=== PATIENT | female | born 1990 | race Two or more races ===

== ENCOUNTER → 2017-01-21 | Outpatient (CLI) | payer OTHER ==
--- NOTE | 2017-01-21 09:08 | REP ---
Cervical spine series: Seven views. History: Spondylosis. Comparison cervical spine radiographs are from May 30, 2016. Findings: There is straightening of the normal cervical lordosis. Cervical vertebral body heights are preserved. Disc spaces are maintained. Flexion/extension lateral views show some limitation of flexion/extension range of motion but no subluxation or instability. AP and open mouth odontoid views remain unremarkable. Oblique images show intact neural foramina bilaterally at each cervical level and normally aligned facets. Impression: Some limitation of flexion/extension range of motion otherwise normal cervical spine radiographs. Unreviewed
--- NOTE | 2017-01-21 09:18 | REP ---
Lumbar spine series: Seven views. History: Spondylosis. Findings: Lateral views done in flexion/extension and neutral position show no subluxation or instability. Vertebral body heights are preserved. Alignment is normal. Disc spaces are maintained. Pedicles and posterior elements are intact. Psoas margins are symmetric. Sacrum and SI joints are intact. Impression: Unremarkable lumbar spine radiographs. Unreviewed
== END ==
LOC: M LAB 08:23
PROVIDERS: ATTEND Neurological Surgery
DX: M47.892 Other spondylosis, cervical region (principal)

== ENCOUNTER 2017-07-28 18:40 | Outpatient (CLI) | payer OTHER ==
[~2017-07-28] VITALS: Ht 170.2 cm; Wt 102.6 kg
[2017-07-28 18:56] VITALS: BP 131/90
[2017-07-28] MEDS ORDERED: ACET50TA PO (19:11)
[2017-07-28] MEDS ORDERED: PRENTAB9 PO (19:11)
--- NOTE | 2017-07-29 00:56 | HPE ---
DATE OF ADMISSION: 07/28/2017 This lady is a 26-year-old 1, para 0, last menstrual period (LMP) 01/13/2017, estimated date of confinement (EDC) 10/27/2016, at 27 and 2 weeks of gestation with a history of decreased movements. Her risk factor is excessive weight gain in . Other than that, she suffers from acne in . Her labs show A positive, HIV negative, hepatitis negative, RPR negative, rubella immune. Varicella by history. Pap normal. Urine is mixed artemio. Gonorrhea and chlamydia are negative. 1-hour glucose 94. She has not done her 28-week labs yet. On examination, no distress. Symphysis fundus height is 28. Category one strip with accelerations. Good baseline heart rate. No loss of fluid or vaginal bleeding. Blood pressure is 131/90, respirations are 18, pulse 99, temperature 98.6. Urine 1.000, pH 6, negative. The rest of the examination is unremarkable. She is normocephalic, atraumatic. Neck full range of motion. Pupils equal and reactive to light. Distal pulses are symmetric. No evidence of deep venous thrombosis (DVT), pulmonary embolus (PE) or superficial phlebitis. No wheezes or rhonchi. No costovertebral angle (CVA) tenderness. Abdomen is soft. Four quadrant bowel sounds are noted. heart is present with a category one strip. She has significant acne. No rashes, lesions or pruritus. No arthritis or myalgia. No complaints of cough, wheeze, shortness of breath or dyspnea on exertion. No chest pain. Not bleeding. Neurologically complete. No incontinency, urgency or frequency. No nausea, vomiting, diarrhea or constipation. Gynecologic (BLOW MOLDER) unremarkable. Past medical, surgical and family history is noncontributory. She does not smoke, drink, abuse drugs. 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 After an hour of monitoring, no evidence of deceleration, contraction, good variability. The patient was counseled regarding kick chart, premature rupture of membranes and labor. Discharged undelivered, following up with her centering class on 08/15. Discharged undelivered.
== END 2017-07-28 20:00 | disposition home or self-care (01) ==
LOC: M LDO 18:40
PROVIDERS: ATTEND Obstetrics & Gynecology
DX: O36.8120 Decreased fetal movements, second trimester, not applicable or unspecified (principal); Z3A.27 27 weeks gestation of pregnancy; O99.712 Diseases of the skin and subcutaneous tissue complicating pregnancy, second trimester; L70.9 Acne, unspecified; Z91.048 Other nonmedicinal substance allergy status; Z88.8 Allergy status to other drugs, medicaments and biological substances

== ENCOUNTER 2017-10-11 08:06 | Inpatient (IN) | payer OTHER ==
[2017-10-11] MEDS: LACTATED RINGER'S 1000 ML IV (11:30)
[2017-10-11] MEDS: LR 1,000 ML IV ×2 (12:12→19:19)
[2017-10-11] MEDS: PENICILLIN G POTASSIUM IV 5 MU in D5W MINI-BAG PLUS 100 ML IV (12:14)
[2017-10-11 12:15] LABS: HEMATOCRIT 36.3 % (36.0-47.0); MEAN CORPUSCULAR HEMOGLOBIN 25.1 pg (27.0-33.0); MEAN CORPUSCULAR HGB CONC 33.1 g/dl (32.0-36.5); MEAN CORPUSCULAR VOLUME 75.9 fl (80.0-96.0); PLATELET COUNT, AUTOMATED 221 10^3/uL (150-450); RED BLOOD COUNT 4.78 10^6/uL (4.00-5.40); RED CELL DISTRIBUTION WIDTH 13.7 % (11.5-14.5); WHITE BLOOD COUNT 9.3 10^3/uL (4.0-10.0)
[2017-10-11] MEDS: OXYTOCIN DRIP 30 UNITS in APPROPRIATE DILUENT 1 EA IV (14:05)
[2017-10-11] MEDS: PENICILLIN G POTASSIUM IV 2.5 MU in APPROPRIATE DILUENT 1 EA IV ×2 (16:22→20:06)
[2017-10-11] MEDS: BUTORPHANOL 2 MG/ML INJ (J0595) IV (18:10)
[2017-10-11] MEDS: PROMETHAZINE INJ 25 MG/ML VIAL (J2550) IV (18:11)
[2017-10-11] MEDS ORDERED: FENTANYL 2MCG/ML ROPIVACAINE 0.2% IN 0.9% NACL 200ML IVBAG As Ordered (21:22)
[2017-10-11] MEDS ORDERED: diphenhydrAMINE INJ 50MG/ML VIAL (J1200) IV (21:45)
[2017-10-11] MEDS ORDERED: NALOXONE INJ 0.4 MG/1 ML VIAL (J2310) IV (21:45)
[2017-10-11] MEDS ORDERED: ePHEDrine INJ 50 MG/ML VIAL IV (21:45)
[2017-10-11] MEDS ORDERED: ONDANSETRON 4MG/2ML VIAL (J2405) IV (21:45)
[2017-10-11] MEDS ORDERED: LACTATED RINGER'S 1000 ML IV (21:45)
[2017-10-11] MEDS: FENTANYL/ROPIVACAINE/NACL BAG 200 ML EPIDURAL (21:45)
[2017-10-11] MEDS ORDERED: EPIDURAL/PCA KEYS XX (21:45)
[2017-10-11] MEDS ORDERED: EPIDURAL COMMENT XX (21:45)
[2017-10-11] MEDS ORDERED: REFRIGERATOR IV KEYS XX (21:45)
[2017-10-11] MEDS ORDERED: ePHEDrine SULFATE 25 MG/5 ML(5MG/ML) SYRINGE As Ordered (23:24)
[2017-10-11] MEDS: ePHEDrine INJ 50 MG/ML VIAL IV (23:53)
[2017-10-12] MEDS: PENICILLIN G POTASSIUM IV 2.5 MU in APPROPRIATE DILUENT 1 EA IV ×2 (00:04→04:28)
[2017-10-12] MEDS: LR 1,000 ML IV (03:19)
[2017-10-12] MEDS ORDERED: METHYLERGONOVINE MALEATE 0.2 MG TAB PO (10:00)
[2017-10-12] MEDS ORDERED: DIBUCAINE 1% OINTMENT 30GM TOP (10:00)
[2017-10-12] MEDS ORDERED: ONDANSETRON 4MG/2ML VIAL (J2405) IV (10:00)
[2017-10-12] MEDS ORDERED: DOCUSATE SODIUM 100 MG CAP PO (10:00)
[2017-10-12] MEDS ORDERED: PROMETHAZINE 25 MG TAB PO (10:00)
[2017-10-12] MEDS: ACETAMINOPHEN TAB 650MG DOSE (2X325MG) PO ×2 (10:20→18:18)
[2017-10-12] MEDS: MEASLES,MUMPS,RUBELLA VACCINE INJ (MMR-II) (90707) SC (12:26)
[2017-10-12] MEDS: MOM 30ML SUSPENSION UDC PO (13:44)
[2017-10-13] MEDS: IBUPROFEN 600 MG TAB PO ×3 (01:51→20:56)
[2017-10-13] MEDS: PRENATAL VITAMINS CHEWABLE TABLET PO (07:30)
[2017-10-13] MEDS: ACETAMINOPHEN TAB 650MG DOSE (2X325MG) PO (07:31)
[2017-10-14] MEDS: IBUPROFEN 600 MG TAB PO (06:01)
[2017-10-14] MEDS: PRENATAL VITAMINS CHEWABLE TABLET PO (07:53)
[2017-10-14] MEDS: ACETAMINOPHEN TAB 650MG DOSE (2X325MG) PO (11:14)
== END 2017-10-14 13:15 | disposition home or self-care (01) | DRG 775 ==
LOC: M LDO 08:06 → M OBS 10-12 12:21 → M LDI 11:05
PROVIDERS: Obstetrics & Gynecology
PROC: 10E0XZZ Delivery of Products of Conception, External Approach (ICD-10-PCS; principal; 2017-10-12)
DX: O69.81X0 Labor and delivery complicated by cord around neck, without compression, not applicable or unspecified (principal); Z37.0 Single live birth; Z3A.37 37 weeks gestation of pregnancy; Z88.1 Allergy status to other antibiotic agents; Z88.8 Allergy status to other drugs, medicaments and biological substances

== ENCOUNTER 2018-07-25 06:57 | Day surgery (SDC) | payer OTHER ==
[2018-07-25 08:08] LABS: HEMATOCRIT 38.6 % (36.0-47.0); HEMOGLOBIN 12.7 g/dl (12.0-15.5); MEAN CORPUSCULAR HEMOGLOBIN 24.6 pg (27.0-33.0); MEAN CORPUSCULAR HGB CONC 32.9 g/dl (32.0-36.5); MEAN CORPUSCULAR VOLUME 74.8 fl (80.0-96.0); PLATELET COUNT, AUTOMATED 240 10^3/uL (150-450); RED BLOOD COUNT 5.16 10^6/uL (4.00-5.40); RED CELL DISTRIBUTION WIDTH 13.7 % (11.5-14.5)
[2018-07-25 08:11] LABS: APPEARANCE, URINE CLEAR (CLEAR); BACTERIA, URINE AUTO NEGATIVE (NEGATIVE); BILIRUBIN, URINE AUTO NEGATIVE (NEGATIVE); BLOOD, URINE BLOOD NEGATIVE (NEGATIVE); COLOR, URINE YELLOW (YELLOW); GLUCOSE, URINE (UA) AUTO NEGATIVE (NEGATIVE); KETONE, URINE AUTO NEGATIVE (NEGATIVE); LEUKOCYTE ESTERASE, URINE AUTO NEGATIVE (NEGATIVE); MUCUS, URINE SMALL (NEGATIVE); NITRITE, URINE AUTO NEGATIVE (NEGATIVE); PROTEIN, URINE AUTO NEGATIVE (NEGATIVE); RBC, URINE AUTO 0 /HPF (0-3); SPECIFIC GRAVITY URINE AUTO 1.013 (1.002-1.035); SQUAMOUS EPITHELIAL CELL UR AU 0 /HPF (0-6); UROBILINOGEN, URINE AUTO 0.2 mg/dL (0.0-2.0); WBC, URINE AUTO 0 /HPF (0-3)
[2018-07-25] MEDS: LIDOCAINE 1% MDV 20ML VIAL As Ordered (08:55)
[2018-07-25] MEDS: SILVER NITRATE APPLICATOR As Ordered (08:55)
[2018-07-25] MEDS: DOXYCYCLINE HYCLATE 100 MG in D5W MINI-BAG PLUS 100 ML IV (09:00)
[2018-07-25] MEDS: DOXYCYCLINE HYCLATE 100 MG/10 ML VIAL As Ordered (09:00)
[2018-07-25] MEDS ORDERED: LIDOCAINE 2% INJ 100 MG/5 ML SDV (FOR ANES.) As Ordered (09:18)
[2018-07-25] MEDS ORDERED: MIDAZOLAM INJ 2 MG/2 ML VIAL (J2250) As Ordered (09:18)
[2018-07-25] MEDS ORDERED: dexameTHASONE 4 MG/ML 1ML VIAL (J1100) As Ordered ×2 (09:18)
[2018-07-25] MEDS ORDERED: KETOROLAC 60 MG/2 ML VIAL (J1885) As Ordered (09:18)
[2018-07-25] MEDS ORDERED: ONDANSETRON 4MG/2ML VIAL (J2405) As Ordered (09:18)
[2018-07-25] MEDS ORDERED: PROPOFOL 200 MG/20 ML VIAL As Ordered (09:18)
[2018-07-25] MEDS ORDERED: fentaNYL 100 MCG/2 ML INJECTION (J3010) As Ordered (09:18)
[2018-07-25] MEDS ORDERED: fentaNYL 100 MCG/2 ML INJECTION (J3010) IV (10:00)
[2018-07-25] MEDS ORDERED: PERCOCET 5MG/325MG TAB PO (10:00)
[2018-07-25] MEDS ORDERED: ONDANSETRON 4MG/2ML VIAL (J2405) IV (10:00)
[2018-07-25] MEDS: LR 1,000 ML IV (10:00)
[2018-07-25] MEDS ORDERED: IBUPROFEN 800 MG TAB PO ×2 (10:30→17:00)
[2018-07-25] MEDS: PERCOCET 5MG/325MG TAB PO (12:10)
== END 2018-07-25 12:35 | disposition home or self-care (01) ==
LOC: M SDC 06:57 → M PED 10:30 → M SDC 12:35
DX: O02.1 Missed abortion (principal); E66.9 Obesity, unspecified
CPT/HCPCS: 59820

== ENCOUNTER → 2019-03-17 | Outpatient (REF) | payer OTHER ==
[~2019-03-17] MED LIST: COLA100C5 PO; IBUP-1022 PO; MAPA500T2 PO; MILK120011 PO; PRENTAB9 PO
== END ==
LOC: M SFHCLERA 14:01
PROVIDERS: ATTEND Family Medicine
DX: R19.7 Diarrhea, unspecified (principal)

== ENCOUNTER 2019-09-24 16:49 | Inpatient (IN) | payer OTHER ==
[~2019-09-24] VITALS: Ht 170.2 cm; Wt 110.9 kg
[2019-09-24] MEDS ORDERED: LACTATED RINGER'S 1000 ML IV STA (17:17)
[2019-09-24] MEDS ORDERED: LR 1,000 ML IV SCH (17:17)
[2019-09-24] MEDS ORDERED: miSOPROStol 50 MCG 1/2 TAB (S0191) PV ONE (17:45)
[2019-09-24] MEDS ORDERED: BUTORPHANOL 2 MG/ML INJ (J0595) IV PRN (17:45)
[2019-09-24] MEDS ORDERED: PROMETHAZINE INJ 25 MG/ML VIAL (J2550) IV ONE (17:45)
[2019-09-24] MEDS: miSOPROStol 50 MCG 1/2 TAB (S0191) PO SCH ×2 (18:15→22:39)
--- NOTE | 2019-09-24 18:20 | HPEPDOC ---
Obstetrical History & Physical General Date of Admission Sep 24, 2019 at 16:49 History of Present Illness Amy is a 28yo with SIUP at 39w1d by lmp c/w early u/s presenting fo r IOL for DFM. She presented to clinic earlier for monitoring after calling triage nurse and telling her that she had not felt robust movement since last night. Drank OJ, cold water, tried a snack, and only felt 1 movement. On the monitor there were accels, but patient still not feeling movement. I counseled her regarding my recommendation for IOL for DFM >39wk gestation and she was amenable. No regular ctx, no LOF, no vaginal bleeding. Chief Complaint: Induction of labor Information Provided By: Patient Care Care: Good Care Dating Final EDC: Sep 30, 2019 Final EDC by: LMP, 1st trimester (US) Antepartum Course Diagnos(e)s Obesity (starting BMI 34), elevated 1hr glucola with normal 3hr GTT, delivery at 36w6d after PPROM Height (inches): 64 Pre- weight (lbs.): 220 Admission Weight (lbs.): 240 Change in Weight (lbs.): 20 Past Medical History Past Obstetrical History : Past Obstetrical History: Multigravida (2018 at 36w6d after PPROM, 6lb7oz. 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 Past Medical History Medical History Obesity Surgical History: Breast reduction, Dilatation and Curettage, Other (bunionectomy) Family History Significant Family History: No pertinent family hx Social History Marital Status: Family situation: Spouse/partner home Psychosocial History: Other ( depression that resolved when spouse returned from deployment) * Smoker: non-smoker Alcohol: Denies Drugs: denies Imunizations Tdap status: current Influenza Status: current Allergies Coded Allergies: alcohol (Verified Allergy, Unknown, Hives, 09/24/19) cefaclor (Unverified Allergy, Unknown, 09/24/19) Medications Scheduled No.137/Iron/Folic Acd ( Vitamin Tablet) 1 Tab Tab, 1 TAB PO DAILY Physical Examination Physical Examination GENERAL: Alert and oriented times three. ABDOMEN: Gravid and non-tender to touch. FETUS: Is vertex (VTX) by sterile vaginal examination (SVE) and TAUS EXTREMITIES: No edema Laboratory Data 24H LABS Laboratory Tests 2 09/24/19 17:08: Serology Scanned Report Hepatitis B Testing Pertinent Laboratoy Data Blood Type: A+ RBC Antibody Screen: Negative HIV: Negative Hepatitis B: Negative Hepatitis C: Unknown Rapid Plasma Reagin: Nonreactive Rubella: Immune Varicella: Immune Chlamydia/Gonorrhea: Negative Group B Streptococcus: Negative Quad Screen Test: Negative Glucose Tolerance Test: 183 (84/169/159/105) Anatomy Ultrasound Ultrasound Date: May 25, 2019 Placenta Location: Posterior Normal Anatomy: Yes Placenta Previa: No Other Ultrasounds 13 Aug 2019 growth scan 45%ile Steroid Therapy Steroid Therapy: No Vaginal Examination Dilation: 1cm Effacement: 70% Station: -2 Cervical Consistency: Medium Cervical Position: Middle Presentation: Cephalic presentation Assessment Heart Rate (FHR): 150 Variability: Moderate Accelerations: Positive Decelerations: None Tocometer Contractions: No Assessment/Plan Assessment Amy is a 28yo with SIUP at 39w1d by lmp c/w early u/s presenting for IOL for DFM. SCE /, cervical martinez bulb placed with 40cc NS and 50mcg PV cytotec. Cat I FHRT, no ctx. Vitals wnl, benign exam. Cephalic by TAUS and SCE. GBS negative. PMHx/ course complicated by: Obesity (starting BMI 34), elevated 1hr glucola with normal 3hr GTT, delivery at 36w6d after PPROM Plan Admit and orient. 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 Diet: regular dinner then clear liquids Group B Streptococcus (GBS) negative Labs and intravenous (IV) per unit protocol. Counseled on cytotec, martinez bulb, Pitocin and induction of labor (IOL). Lactated Ringers (LR): Bolus 500 mL, then at 125 mL/hr. Anticipate normal spontaneous delivery () Candidate for epidural in active labor, IV stadol in latent labor Khushi Hare MD Sep 24, 2019 17:35
[2019-09-24 19:12] VITALS: BP 119/71
[2019-09-24 19:15] LABS: HEMOGLOBIN 12.3 g/dl (12.0-15.5); MEAN CORPUSCULAR HEMOGLOBIN 24.9 pg (27.0-33.0); MEAN CORPUSCULAR HGB CONC 32.4 g/dl (32.0-36.5); MEAN CORPUSCULAR VOLUME 76.9 fl (80.0-96.0); PLATELET COUNT, AUTOMATED 217 10^3/uL (150-450); RED BLOOD COUNT 4.94 10^6/uL (4.00-5.40); WHITE BLOOD COUNT 9.5 10^3/uL (4.0-10.0)
[2019-09-24 20:18] VITALS: BP 140/81
[2019-09-24 21:11] VITALS: BP 113/70
[2019-09-24 22:37] VITALS: BP 115/74
[2019-09-24 23:47] VITALS: BP 111/62
[2019-09-25] VITALS (39 sets, daily range): BP systolic 66–135; BP diastolic 32–74
[2019-09-25] MEDS ORDERED: FENTANYL 2MCG/ML ROPIVACAINE 0.2% IN 0.9% NACL 100ML IVBAG As Ordered ONE (03:37)
[2019-09-25] MEDS ORDERED: NALOXONE INJ 0.4 MG/1 ML VIAL (J2310) IV PRN (04:20)
[2019-09-25] MEDS ORDERED: REFRIGERATOR IV KEYS XX PRN (04:20)
[2019-09-25] MEDS ORDERED: ONDANSETRON 4MG/2ML VIAL (J2405) IV PRN (04:20)
[2019-09-25] MEDS ORDERED: ePHEDrine SULFATE 25 MG/5 ML(5MG/ML) SYRINGE IV PRN ×2 (04:20→09:45)
[2019-09-25] MEDS ORDERED: FENTANYL/ROPIVACAINE/NACL BAG 100 ML EPIDURAL SCH (04:20)
[2019-09-25] MEDS ORDERED: LACTATED RINGER'S 1000 ML IV PRN (04:20)
[2019-09-25] MEDS ORDERED: EPIDURAL/PCA KEYS XX PRN (04:20)
[2019-09-25] MEDS ORDERED: diphenhydrAMINE INJ 50MG/ML VIAL (J1200) IV PRN (04:20)
[2019-09-25] MEDS ORDERED: EPIDURAL COMMENT XX SCH (04:20)
[2019-09-25] MEDS ORDERED: ePHEDrine SULFATE 25 MG/5 ML(5MG/ML) SYRINGE As Ordered ONE (05:06)
[2019-09-25] MEDS ORDERED: LR 500 ML IV ONE (06:10)
[2019-09-25] MEDS ORDERED: OXYTOCIN DRIP 30 UNITS in IV 1 EA IV SCH (07:00)
--- NOTE | 2019-09-25 07:01 | IPNPDOC ---
Text Note Date of Service The patient was seen on 09/25/19. NOTE Intrapartum Note Amy is doing well, has epidural. Had some low bp's after initial epidural placement that were addressed by anesthesiology. Vitals wnl, afebrile Cat I FHRT with bl 150, +accels, -decels, mod gio [place]: q2-4min SCE 6/50/-2, AROM performed with clear fluid noted, well tolerated Will initiate pitocin and titrate per protocol Will continue to closely observe Would plan to re-check patient in 4hr or earlier as indicated Safe to proceed Dr. Khushi Hare MD VS,Sadie, I+O VS, Sadie, I+O Laboratory Tests 09/24/19 18:56 Vital Signs Date Time Temp Pulse Resp B/P (MAP) Pulse Ox O2 Delivery O2 Flow Rate FiO2 09/25/19 01:09 18 124/79 Room Air 09/24/19 23:47 74 09/24/19 22:37 97.9 I&O- Last 24 Hours up to 6 AM 09/25/19 06:00 Intake Total 500 ml Balance 500 ml Khushi Hare MD Sep 25, 2019 07:01
[2019-09-25] MEDS: ePHEDrine SULFATE 25 MG/5 ML(5MG/ML) SYRINGE IV PRN ×3 (07:42→08:42)
--- NOTE | 2019-09-25 10:18 | IPN ---
DATE: 09/25/2019 28-year-old 3, para 1 at 39 and 1 weeks of gestation. She was admitted for induction of labor for decreased movement. Her risk factors are that she has a BMI of 34, elevated 1-hour glucose with a normal 3-hour GTT and she had a delivery at 36 and 6 weeks gestation after premature rupture of membranes. Presently after her epidural, she has had significant low blood pressures anywhere from 83/48 to 81/46. Her previous blood pressures were normal at 124/79 and she has had six doses of ephedrine. She has had boluses of fluid. Anesthesia reconsulted and cut back her epidural. Despite that, she still has a low blood pressure. She has a category 1 strip. Contractions are about 4-5 minutes apart. On pelvic examination she is 5 cm, a thick cervix. Presenting part has molding, is occiput transverse and not well applied to the cervix, requires Pitocin augmentation. We will attempt to do Pitocin augmentation and try to bring her blood pressure up with consultation with anesthesia as well as fluid bolus and the routine use of ephedrine. We will reevaluate the patient in 2 hours time. Safe to proceed.
[2019-09-25 12:14] LABS: CORD GAS ABE A -2.1; CORD GAS HCO3 A 26.6 MEQ/L; CORD GAS O2 SAT A 27.7 %; CORD GAS PCO2 A 63.5 mmHg; CORD GAS PH A 7.24 UNITS; CORD GAS PO2 A 15.3 mmHg; CORD GAS SBC A 21.1 MEQ/L; CORD GAS TCO2 A 28.6 MEQ/L
[2019-09-25 12:16] LABS: CORD GAS ABE V -3.6; CORD GAS O2 SAT V 59.7 %; CORD GAS PCO2 V 47.5 mmHg; CORD GAS PH V 7.303 UNITS; CORD GAS PO2 V 24.5 mmHg; CORD GAS SBC V 20.6 MEQ/L; CORD GAS TCO2 V 24.5 MEQ/L
[2019-09-25] MEDS ORDERED: IBUPROFEN 600 MG TAB PO PRN (13:00)
[2019-09-25] MEDS ORDERED: RHOGAM 300 MCG (1500 IU) INJ (J2790) IM SCH (13:00)
[2019-09-25] MEDS ORDERED: ACETAMINOPHEN TAB 650MG DOSE (2X325MG) PO PRN (13:00)
[2019-09-25] MEDS ORDERED: MEASLES,MUMPS,RUBELLA VACCINE INJ (MMR-II) (90707) SC SCH (13:00)
[2019-09-25] MEDS ORDERED: DOCUSATE SODIUM 100 MG CAP PO PRN (13:00)
[2019-09-25] MEDS ORDERED: DIBUCAINE 1% OINTMENT 30GM TOP PRN (13:00)
[2019-09-25] MEDS ORDERED: MOM 30ML SUSPENSION UDC PO PRN (13:00)
[2019-09-25] MEDS ORDERED: METHYLERGONOVINE MALEATE 0.2 MG TAB PO PRN (13:00)
[2019-09-25] MEDS ORDERED: OXYTOCIN INJ 10 UNITS/ML VIAL (J2590) IV ONE (16:15)
[2019-09-25] MEDS: ACETAMINOPHEN 500 MG TAB PO PRN (17:58)
[2019-09-25] MEDS: IBUPROFEN 800 MG TAB PO PRN (20:27)
[2019-09-26] MEDS: ACETAMINOPHEN 500 MG TAB PO PRN (01:15)
[2019-09-26] MEDS: IBUPROFEN 800 MG TAB PO PRN ×2 (06:20→13:35)
[2019-09-26] MEDS ORDERED: DOCU100C16 PO (06:31)
[2019-09-26] MEDS ORDERED: DIBU10OI TOP (06:31)
[2019-09-26] MEDS ORDERED: IBUP80TA PO (06:31)
[2019-09-26] MEDS ORDERED: MOM30SS2 PO (06:31)
[2019-09-26 07:39] LABS: HEMATOCRIT 36.5 % (36.0-47.0); HEMOGLOBIN 11.6 g/dl (12.0-15.5); MEAN CORPUSCULAR HEMOGLOBIN 24.7 pg (27.0-33.0); MEAN CORPUSCULAR HGB CONC 31.8 g/dl (32.0-36.5); MEAN CORPUSCULAR VOLUME 77.7 fl (80.0-96.0); PLATELET COUNT, AUTOMATED 166 10^3/uL (150-450); WHITE BLOOD COUNT 10.6 10^3/uL (4.0-10.0)
[2019-09-26] MEDS ORDERED: PRENATAL VITAMINS CHEWABLE TABLET PO SCH (09:00)
--- NOTE | 2019-09-26 11:06 | DN ---
DATE OF DELIVERY: DELIVERY NOTE: This lady is a 22-year-old, 3, para 1, admitted for induction of labor at 39 and 1 weeks of gestation for decreased movement. She had an epidural in place, had persistent hypotension and had significant issues in getting her blood pressure to be stabilized and normalized. At full dilatation, after 4 milliunits of Pitocin, she had a spontaneous vaginal delivery of a female infant 6 pounds 14 ounces (3130 grams). score of 9 and 10 at one and five minutes respectively. Arterial pH 7.24, base excess of -2.1. Venous pH 7.30, base excess -3.6. Placenta delivered spontaneously thereafter. Three-vessel cord, membranes and tissues intact. The anterior, posterior and lateral mi were intact. She has very short perineum. Sphincter was tight, intact and there were no spontaneous tears or lacerations to the vagina or the vulva. The uterus contracted well under Pitocin. The patient's hypotension resolved. The patient and baby tolerated procedure well.
--- NOTE | 2019-09-26 20:06 | DSES ---
DATE OF ADMISSION: 09/24/2019 DATE OF DISCHARGE: 09/26/2019 A 28-year-old 3, para 2, admitted for induction of labor at 39 and 1 weeks of gestation because of decreased movement. With epidural in place had a spontaneous vaginal delivery of a female , 6 pounds 14 ounces, 3130 grams, scores of 9 and 10 at one and five minutes, respectively. Arterial pH 7.24, base excess -2.1, venous pH 7.30, base excess -3.6. The only issue she had was consistent hypotension after the epidural; however, with pop up and intravenous (IV) fluids and decreasing the epidural, eventually her blood pressures stabilized. On her first day we discussed phlebitis, cystitis, mastitis, metritis, cellulitis, diet, exercise, pain management, perineal, breast, and pelvic care. On discharge, her blood pressure is 120/74, respirations 20, pulse 111, temperature 98.9. Her admitting hemoglobin was 12.3, hematocrit 38.0, and platelets are 217. The rest examination unremarkable. She is normocephalic, atraumatic. Neck: Full range of motion. Pupils equal and reactive to light. Distal pulses are symmetric. No evidence of deep vein thrombosis (DVT), pulmonary embolism (PE), or superficial phlebitis. Chest is clear bilaterally to bases. No wheezes or rhonchi. No costovertebral angle (CVA) tenderness. Abdomen soft. Uterus is 2 below. Lochia is moderate. Four-quadrant bowel sounds are noted. Perineum is intact. No rashes, lesions, or pruritus. No arthralgia, myalgia. No complaint of joint pain. No complaint cough, wheezes, shortness breath, or dyspnea on exertion. No urgency, frequency. No nausea, vomiting, diarrhea, constipation. In summary, we have a term gestation who delivered a live female . Plans are 6-week checkup, at which time we will discuss control. All questions were answered. A 40-minute discussion.
== END 2019-09-26 14:30 | disposition home or self-care (01) | DRG 807 ==
LOC: M LDI 16:49 → M OBS 09-25 14:50
PROVIDERS: ADMIT Obstetrics & Gynecology; ATTEND Obstetrics & Gynecology
PROC: 3E0P7GC Introduction of Other Therapeutic Substance into Female Reproductive, Via Natural or Artificial Opening (ICD-10-PCS; 2019-09-24)
PROC: 10E0XZZ Delivery of Products of Conception, External Approach (ICD-10-PCS; principal; 2019-09-26)
DX: O99.214 Obesity complicating childbirth (principal); Z37.0 Single live birth; Z3A.39 39 weeks gestation of pregnancy; E66.9 Obesity, unspecified; O99.42 Diseases of the circulatory system complicating childbirth; I95.9 Hypotension, unspecified

== ENCOUNTER → 2019-11-03 | Outpatient (CLI) | payer OTHER ==
[~2019-11-03] MED LIST changes: +DIBU10OI TOP; +DOCU100C16 PO; +IBUP80TA PO; +MOM30SS2 PO; +PROHANCE 279.3MG/ML 15ML VIAL (A9576) As Ordered ONE; +PROHANCE 279.3MG/ML 5ML VIAL (A9576) As Ordered ONE
--- NOTE | 2019-11-03 16:57 | REPVR ---
PROCEDURE INFORMATION: Exam: MR Head Without and With Contrast Exam date and time: 11/03/2019 2:52 PM Age: 29 years old Clinical indication: Other: Jaw pain, tmj vs neuralgia; Additional info: Trigeminal neuralgia TECHNIQUE: Imaging protocol: MR of the head without and with intravenous contrast. Contrast material: PROHANCE; Contrast volume: 20 ml; Contrast route: IV; COMPARISON: No relevant prior studies available. FINDINGS: Brain: There is no acute intracranial hemorrhage, cerebral edema, or midline shift. No restricted diffusion is present to suggest acute infarction. No enhancing lesions were identified after the administration of contrast. The bilateral trigeminal nerves appear unremarkable. Ventricles: No hydrocephalus. Bones/joints: Unremarkable. Soft tissues: Unremarkable. Sinuses: Normal as visualized. No acute sinusitis. Mastoid air cells: Normal as visualized. No mastoid effusion. Orbits: Unremarkable. IMPRESSION: No significant abnormality. Electronically signed by: Satinder Paul On 11/03/2019 16:57:49 PM
== END ==
LOC: M RAD 14:43
PROVIDERS: ATTEND Nurse Practitioner Primary Care
DX: G50.0 Trigeminal neuralgia (principal)
CPT/HCPCS: 70553; A9576